=== PATIENT | female | born 1985 | race Caucasian/White ===

== ENCOUNTER 2017-03-09 19:22 | Emergency (ER) | payer SELFPAY ==
[~2017-03-09] VITALS: Ht 162.6 cm; Wt 75.0 kg
[2017-03-09 19:58] VITALS: Ht 162.6 cm; Wt 75.0 kg
[2017-03-09] MEDS ORDERED: ACETAMINOPHEN 500 MG TAB PO STA (22:13)
[2017-03-09] MEDS ORDERED: ONDANSETRON (ODT) 4 MG TAB ODT STA (22:15)
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
[2017-03-09] MEDS ORDERED: NAPR-260 PO (23:47)
[2017-03-09] MEDS ORDERED: TRAM50TA2 PO (23:47)
[2017-03-09] MEDS ORDERED: CYCL-319 PO (23:48)
[2017-03-10 00:07] VITALS: BP 102/63; PULSE 65; RESP 20
== END 2017-03-10 00:18 | disposition home or self-care (01) ==
LOC: FTE 19:22
DX: M25.561 Pain in right knee (principal); M54.6 Pain in thoracic spine; M54.9 Dorsalgia, unspecified; R42 Dizziness and giddiness; R51 Headache
CPT/HCPCS: 70450; 71010; 72100; 72125; 73562